=== PATIENT | male | born 1975 | race African-American/Black ===

== ENCOUNTER 2019-12-14 08:57 | Emergency (ER) | payer MEDICAID ==
[~2019-12-14] VITALS: Ht 175.3 cm; Wt 69.4 kg
[2019-12-14 08:59] VITALS: BP 122/71
[2019-12-14] MEDS ORDERED: HYDROcodone/APAP 5/325 MG 1 TAB TAB PO ONE (09:25)
[2019-12-14 11:49] VITALS: BP 120/70
== END 2019-12-14 11:49 | disposition home or self-care (01) ==
LOC: MED 08:57
DX: M79.662 Pain in left lower leg (principal); I87.2 Venous insufficiency (chronic) (peripheral); M79.89 Other specified soft tissue disorders; Z96.652 Presence of left artificial knee joint
CPT/HCPCS: 93971; 99284